=== PATIENT | male | born 1995 | race Two or more races ===

== ENCOUNTER 2017-01-17 13:05 | Observation (INO) | payer BC ==
[~2017-01-17] VITALS: Ht 193 cm; Wt 139.0 kg
--- NOTE | ~2017-01-17 | HP ---
PATIENT'S NAME: TRACI RIOS [facility] AGE: 21 Y [address] ROOM: [id number] [place], [place] [address] [facility] ADMIT DATE: 01/17/2017 History & Physical DISCHARGE DATE: FAMILY PHYSICIAN: PHYSICIAN, UNKNOWN ATTENDING PHYSICIAN: Ana Fraga DATE OF SERVICE: HISTORY OF PRESENT ILLNESS: Mr. Rios is a 21-year-old male patient who is here to join the [employer]. He and his parents have driven from [place] over for 2 days to get here. Prior to leaving [place] over the weekend, from about the middle of the week, he has been noticing a lot of trouble with his sinuses and some tightness across his chest and shortness of breath. He has also had some headaches along with that and maybe a low-grade fever. He does not have too much in terms of coughing or wheezing. In the last couple of days, he has been noticing some chest pain, located over the left precordial area which is worse in the last 2-3 hours. It radiates through to the back and down the left arm. There are no other associated features. He went to the [facility] where an EKG was done and an antibiotic prescribed. The EKG was worrisome for tall T-waves and he was asked to be seen in the office where a repeat EKG approximately an hour later showed no significant change in the EKG. The tall T-waves are probably consistent with an athlete's heart for more so than anything else. The patient currently admits that he has significant pain in the left precordial area in the central chest, radiating through to the back and to the left arm. This gets worse when he takes a deep breath. 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 When he got here, he did try to work out with the team and became extremely fatigued and tired and short of breath. He denies any syncope even though he thought he was lightheaded at times. There were no significant palpitations or ankle swelling. The patient has history of hypertension. He is not diabetic. There is no history of elevated cholesterol or tobacco abuse or family historyof premature coronary artery disease. There is no prior history of [place] or angina or nitroglycerin use. There is no history of rheumatic fever, heart murmur, heart failure, dilated or enlarged heart, or any diagnosed cardiac arrhythmias. MEDICATIONS: Currently none. PATIENT'S NAME: TRACI RIOS [facility] AGE: 21 Y [address] ROOM: [id number] [place], [place] [address] LOC[facility]: [facility] ADMIT DATE: 01/17/2017 History & Physical DISCHARGE DATE: FAMILY PHYSICIAN: PHYSICIAN, UNKNOWN ATTENDING PHYSICIAN: Ana Fraga PAST MEDICAL HISTORY: 1. History of some elevated blood pressure off and on. 2. Asthma. 3. The patient had elevated bilirubin and he discontinued taking one of the protein supplements he was on and it has gotten significantly better. SOCIAL HISTORY: The patient is single. He denies abusing alcohol or recreational drugs. His appetite and weight have been stable. Sleep is fair. FAMILY HISTORY: No premature coronary artery disease. REVIEW OF SYSTEMS: A 12-point review of systems revealed the following positives: 1. Corrective glasses. 2. For the past 2 days, some difficulty when he swallows, feels almost as if his food get stuck in the middle of the chest. 3. Constipation lately. PHYSICAL EXAMINATION: VITAL SIGNS: On examination, the patient is currently weighs 303 pounds. His oxygen saturation is 98%, heart rate is 84, respirations are 16, and blood pressure is 134/96. HEENT: Normal. NECK: Supple. No JVD, thyromegaly, lymphadenopathy, or carotid bruit. CARDIAC: PMI is not well located. First and second heart sounds are regular. There are no added sounds or murmurs. CHEST: Clear to auscultation. ABDOMEN: Soft, obese. Bowel sounds are normally present. EXTREMITIES: Reveal no edema. CENTRAL NERVOUS SYSTEM: Intact. ASSESSMENT: A 21-year-old male patient with atypical chest pains and shortness of breath along with some abnormality of his EKG, which is probably due to his age and athlete's heart. His pain is quite significant at this time, and it is clearly pleuritic in nature, at least for now. Besides the chest pain and shortness of breath, he also has some difficulty in swallowing. It is likely that he has either pericarditis or pleurisy or underlying pneumonia cannot be ruled out. In addition, we will also have to watch him and rule him out for any non-STEMI or any abnormal ST-segment elevation MIs. We will get a stat echocardiogram to rule that out. PATIENT'S NAME: TRACI RIOS [facility] AGE: 21 Y [address] ROOM: [place] [id number] LOCATION: [facility] ADMIT DATE: 01/17/2017 History & Physical DISCHARGE DATE: FAMILY PHYSICIAN: PHYSICIAN, UNKNOWN ATTENDING PHYSICIAN: Ana Fraga We will also look for significant problems with pulmonary embolism or any athlete's heart-related conditions. I recommended that we admit him for observation and start evaluating him right away. At this time, his EKGs are not consistent with ST-elevation [place]. MD CHERELLE GREEN/kenya /[id number] D: 924 T: 334 HISTORY & PHYSICAL
--- NOTE | ~2017-01-17 | DS ---
PATIENT'S NAME: TRACI RIOS [facility] AGE: 21 Y [address] ROOM: [id number] [place], [place] [address] LOCATION: [facility] ADMIT DATE: 01/17/2017 Discharge Summary DISCHARGE DATE: 01/19/2017 FAMILY PHYSICIAN: LILLIANA VASQUEZ ATTENDING PHYSICIAN: Ana Fraga DISCHARGE DIAGNOSES: 1. Most probable viral syndrome with sinusitis, with worsening underlying asthma and possibly pleurisy. 2. History of hypertension. 3. Mild left ventricular hypertrophy by echocardiogram. 4. Mildly dilated right atrium and increased right atrial pressures most consistent with acute exacerbation of his asthma. 5. CT pulmonary angiogram was done to rule out any underlying pulmonary embolic disease. 6. 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 CURRENT LIST OF MEDICATIONS: 1. Tapering dose of prednisone. 2. Vitamin B12, 1 mg once a day, which he was on before. 3. Vitamin D3, 5000 units a day, which he was on before. 4. Multivitamin, which he was on before. 5. Docusate sodium 100 mg two tablets every night as needed. 6. Fluticasone propionate inhaler two sprays to each nostril everyday, which is new. 7. Protonix 40 mg once a day, which is new. 8. Combivent inhaler two puffs 3 times a day and p.r.n., new. 9. Tylenol 500 mg three times a day as needed, which is again new. COURSE IN HOSPITAL: The patient was traveling from [place] to [place], [place]. Three days prior to that, he noticed some symptoms pertaining to his sinuses as well as his lungs with some tightness and shortness of breath. He also had some chest pain over the left precordial area, which was pleuritic in nature. There was no cough or phlegm production or significant temperature increase. [facility] evaluated in [facility] [place], where they did an EKG and they were concerned about his EKG. So, he was sent over to my office where I saw him, and his EKG showed no changes of acute ST-segment abnormalities. A repeat EKG one hour after the first one was very stable. He had a few other EKGs after that, which were all negative and his troponins were negative. His D-dimer was negative as well as his BNP. The patient's chest pain was treated using mostly Tylenol and at least one dose of Solu- Medrol. His echocardiogram revealed no evidence of pericardial effusion. He did have mild LVH. His right atrium was mildly dilated with evidence for PATIENT'S NAME: TRACI RIOS [facility] AGE: 21 Y [address] ROOM: [address] [address] LOCATION: [facility] ADMIT DATE: 01/17/2017 Discharge Summary DISCHARGE DATE: 01/19/2017 FAMILY PHYSICIAN: LILLIANA VASQUEZ ATTENDING PHYSICIAN: Ana Fraga increase in right atrial pressures. So, he was treated with bronchodilators, and he also complained about constipation, which was managed by the Internal Medicine physicians. No antibiotics were prescribed as it was felt that he was not having a bacterial infection at this time. He seemed to gradually get better over the next 48 hours. The patient has history of hypertension as well as history of asthma. He has elevated bilirubin, which has been a problem in the past too. He also admitted to having some discomfort when he swallows lately. DISCHARGE INSTRUCTIONS: He was given instructions regarding nonpharmacological means of lowering his blood pressure. I did service counselor them saying that if the blood pressure does not come under control to about 100 to 110 systolic within a matter of a few weeks to few months, he should go on medications to help with the blood pressure control. This is mainly because he has mild LVH on his echocardiogram. This could, however, also be from athletic training. The only way you can prove this is to have him stop training and both he and his parents said that, that is not an option at this time. He is being treated as his asthma was getting exacerbated by the viral syndrome. His bilirubin is also probably a little high from possibly having underlying Gilbert syndrome or some such benign disorder more so than anything else. His GI symptoms including difficulty swallowing is being treated with proton pump inhibitors for the time being, and his constipation is being managed with the stool softeners. DISCHARGE PLAN: The patient's plan is to go back to Dr. Vasquez in [place], who is their family doctor, and I urged them to see him fairly soon when they get back to [place], may be in the early part of next week or mid part of next week. MD CHERELLE GREEN/kenya /[id number] d: 01/19/178 t: 01/22/17 1336, DISCHARGE SUMMARY
--- NOTE | ~2017-01-17 | CON ---
PATIENT'S NAME: TRACI RIOS [facility] AGE: 21 Y [address] ROOM: [place] [address] LOCATION: [facility] ADMIT DATE: 01/17/2017 Consultation DISCHARGE DATE: FAMILY PHYSICIAN: PHYSICIAN, UNKNOWN ATTENDING PHYSICIAN: Ana Fraga DATE OF CONSULTATION: 01/17/2017 REFERRING PHYSICIAN: Ana Fraga MD REASON FOR CONSULTATION: Medical management. HISTORY OF PRESENT ILLNESS: The patient is a previously healthy 21-year-old male. He carries a distant childhood history of asthma, but no other active medical conditions. 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 In the course of last 3 days, the patient has been experiencing a multitude of symptoms. These include weakness and fatigue, intermittent pleuritic chest pain, shortness of breath, tingling in his left upper extremity, headache, nasal and sinus congestion as well as early sleepiness as well as constipation for the last day and a half. The patient has been able to intermittently practice at the football camp with these, but has been getting progressively worse. He describes the quality of his chest pain as sharp and dull as well as a pressure, and it appears to be associated with deep inspiration. The patient was initially seen [facility], subsequently in Dr. Fraga's office and was directly admitted to the hospital. Since then, he has had an extensive workup, including a complete biochemical profile which only showed a previously known elevated bilirubin as well as 2 negative sets of cardiac enzymes. His EKG is unremarkable for his age. Per discussion with Dr. Fraga, his echocardiogram did demonstrate some increased right atrial pressures and as such a CT of his chest with contrast to rule out a PE was done and preliminarily was reported to me as negative. At this point, the patient is still complaining of various combination of the symptoms described above and a hospitalist consult was requested. REVIEW OF SYSTEMS: All systems have been reviewed and are negative aside from pertinent positives as mentioned above. PATIENT'S NAME: TRACI RIOS [facility] AGE: 21 Y [address] ROOM: [place] [address] LOCATION: [facility] ADMIT DATE: 01/17/2017 Consultation DISCHARGE DATE: FAMILY PHYSICIAN: PHYSICIAN, UNKNOWN ATTENDING PHYSICIAN: Ana Fraga PAST MEDICAL HISTORY: Childhood asthma. FAMILY HISTORY: His mother has lymphedema in one leg and his father has type 2 diabetes. He has a younger sister who is healthy. SOCIAL HISTORY: I elicited this in privacy after asking the patient's family to leave the room. He denies any drug use. He denies any alcohol use. 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 He did say that he was using some protein powders and amino acid supplements, which he discontinued after having been found to have bilirubin elevation. CURRENT MEDICATIONS: 1. Cyanocobalamin. 2. Vitamin D. PHYSICAL EXAMINATION: VITAL SIGNS: Blood pressure of 161/69, respirations 24, pulse is 83, temperature 98, saturating 100% on room air. GENERAL: Appears as a well-developed, well-nourished young male, extremely anxious and slightly tachypneic, but aside from that, in no acute distress. A detailed neurologic exam appears entirely nonfocal. EYES: Pupils are equal and reactive to light. ENT: Reveals some pharyngeal erythema and cobblestoning of the posterior pharynx. LYMPHATIC: Shows no cervical lymphadenopathy. ENDOCRINE: Shows no thyromegaly. LUNGS: Clear to auscultation in all mckeon. HEART: Rate is regular with no appreciable murmurs, gallops, or rubs. ABDOMEN: Soft, nontender, nondistended. Slightly hypoactive bowel sounds. No tenderness or rebound. : Reveals no costovertebral angle tenderness. VASCULAR: Reveals 2+ pedal pulses. PSYCHIATRIC: Reveals extremely anxious young male with pressured speech, but preserved cognition and mentation. SKIN: Warm and dry. LABORATORY DATA: Review of the studies that have been done so far is unremarkable aside from a bilirubin of 2.5. His EKG does show sinus rhythm at 83 beats per minute with tall R and T-waves in lateral leads which I interpreted to be normal for his age. Preliminary echocardiogram shows increased right atrial pressures. PATIENT'S NAME: TRACI RIOS [facility] AGE: 21 Y [address] ROOM: [place] [address] [facility] AD[facility] DATE: 01/17/2017 Consultation DISCHARGE DATE: FAMILY PHYSICIAN: PHYSICIAN, UNKNOWN ATTENDING PHYSICIAN: Ana Fraga IMPRESSION AND RECOMMENDATIONS: This is a 21-year-old male, who has been admitted with a conglomeration of symptoms including chest pain, shortness of breath, diaphoresis, tingling, sinus congestion, headache, and constipation. A fairly detailed workup at this point has not revealed an underlying etiology for his presentation. At this point, I attempted to initiate treatment of his symptoms, namely his constipation with MiraLAX and his postnasal drip with Flonase. It is my understanding that possible pericarditis is still being evaluated and a repeat EKG may show it. I do not feel that there is any indication for antibiotics at this point as the patient does not have an elevated white count and is afebrile. I think if the workup for his chest pain as well as remainder of his symptoms remain negative, we do need to consider a psychogenic etiology for his presentation. I would expect that he is under a lot of stress having moved to the new school and having started a new football camp. I did ask him about psychological pressors, but the patient denies, though we should not exclude this possibility. We will also check a urinalysis and a urine tox screen. We will follow the patient with you. Thank you for allowing us to participate in the care of this pleasant gentleman. Total time dedicated to this patient's encounter is 35 minutes. MD KIRSTEN YUEN/keyna /[id number] d: 01/18/17212 t: 01/28/17 0001, CONSULTATION REPORT
[2017-01-17] MEDS ORDERED: VITAMIN B-121000 MCG PO (13:50)
[2017-01-17] MEDS ORDERED: VITAMIN D35000 UNI1 PO (13:51)
[2017-01-17 13:52] LABS: BASOPHIL % 0.4 %; EOSINOPHIL % 0.4 %; HEMATOCRIT 42.1 % (37.0-53.0); HEMOGLOBIN 14.8 g/dL (12.0-17.0); IMMATURE GRANULOCYTE % 0.2 %; LYMPHOCYTE # 2.4 K/uL (0.8-4.0); LYMPHOCYTE % 24.5 %; MCH 29.8 pg (27.0-34.0); MCHC 35.2 gm/dL (32.0-36.5); MCV 84.7 fl (83.0-98.0); MONOCYTE # 0.7 K/uL (0.0-1.0); MONOCYTE % 7.7 %; MPV 10.1 fl (9.4-12.4); NEUTROPHIL # (ANC) 6.4 K/uL (1.4-9.0); NEUTROPHIL % 66.8 %; NRBC % 0 /100WBC (0-0.00); PLATELET COUNT 280 K/uL (150-450); RBC 4.97 M/uL (4.00-6.00); RDW-CV 12.1 % (11.9-14.6); WBC 9.6 K/uL (4.0-11.0)
[2017-01-17] MEDS ORDERED: MULTI-VITAMIN1 EAC1 PO (13:52)
[2017-01-17 14:17] LABS: ALBUMIN 4.4 gm/dL (3.5-5.0); ALK PHOS 88 IU/L (33-138); ALT 46 IU/L (12-78); ANION GAP 12.6 (10.0-19.0); AST 28 IU/L (10-40); BLOOD UREA NITROGEN 19 mg/dL (6-24); CALCIUM 8.9 mg/dL (8.5-10.5); CHLORIDE 105 mMol/L (96-110); CO2 25 mMol/L (22-32); ESTIMATED GFR (MDRD EQUATION) > 60; POTASSIUM 3.6 mMol/L (3.7-5.1); SODIUM 139 mMol/L (135-145); TOTAL BILIRUBIN 2.5 mg/dL (0.0-1.5); TOTAL PROTEIN 7.5 g/dL (6.0-8.4)
[2017-01-18 00:14] LABS: BILIRUBIN URINE NEGATIVE (NEGATIVE); BLOOD URINE NEGATIVE /UL (NEGATIVE); COLOR URINE YELLOW (YELLOW); GLUCOSE URINE NEGATIVE (NEGATIVE); KETONE URINE 5 mg/dL (NEGATIVE); LEUKOCYTES URINE NEGATIVE /UL (NEGATIVE); NITRITE URINE NEGATIVE (NEGATIVE); PROTEIN URINE 15 mg/dL (NEGATIVE); TURBIDITY URINE CLEAR (CLEAR); UROBILINOGEN URINE NORMAL (NORMAL)
[2017-01-18 00:23] LABS: BACTERIA URINE NEGATIVE (NEGATIVE); EPITHELIAL URINE NEGATIVE #/HPF (NEGATIVE); RBC URINE NEGATIVE #/HPF (NEGATIVE); WBC URINE NEGATIVE #/HPF (NEGATIVE)
[2017-01-18 00:33] LABS: BARBITURATE NEGATIVE (NEGATIVE); OPIATES NEGATIVE (NEGATIVE)
[2017-01-18 00:37] LABS: AMPHETAMINE NEGATIVE (NEGATIVE); COCAINE NEGATIVE (NEGATIVE)
[2017-01-18 02:32] LABS: ANION GAP 11.2 (10.0-19.0); BLOOD UREA NITROGEN 16 mg/dL (6-24); CALCIUM 8.6 mg/dL (8.5-10.5); CHLORIDE 110 mMol/L (96-110); CO2 24 mMol/L (22-32); CREATININE 0.9 mg/dL (0.6-1.3); ESTIMATED GFR (MDRD EQUATION) > 60; POTASSIUM 4.2 mMol/L (3.7-5.1); SODIUM 141 mMol/L (135-145)
[2017-01-19] MEDS ORDERED: COLACE100 MG PO (10:47)
[2017-01-19] MEDS ORDERED: FLONASE 50 MCG/16 GM NOSE (10:49)
[2017-01-19] MEDS ORDERED: DUONEB INH (10:50)
[2017-01-19] MEDS ORDERED: PROTONIX40 MG PO (10:50)
[2017-01-19] MEDS ORDERED: TYLENOL EXTRA500 MG PO (10:51)
[2017-01-19] MEDS ORDERED: DELTASONE10 MG PO ×3 (10:54→10:59)
[2017-01-19] MEDS ORDERED: DELTASONE5 MG PO (10:57)
== END 2017-01-19 11:10 | disposition disaster alternative care site (69) ==
LOC: GPCU 13:08
PROVIDERS: Internal Medicine; ADMIT Internal Medicine Interventional Cardiology
DX: R51 Headache (principal); J45.909 Unspecified asthma, uncomplicated; I10 Essential (primary) hypertension; I51.7 Cardiomegaly; R07.81 Pleurodynia; F41.9 Anxiety disorder, unspecified; E80.6 Other disorders of bilirubin metabolism; Z79.899 Other long term (current) drug therapy
CPT/HCPCS: J1650; J2930; J7030; Q9967